=== PATIENT | female | born 1985 | race Caucasian/White ===

== ENCOUNTER 2019-12-29 10:53 | Inpatient (IN) | payer OTHER ==
[~2019-12-29] VITALS: Ht 162.5 cm; Wt 130.6 kg
[~2019-12-29 10:53] MED LIST: ACHYD1T PO; DCS100C PO; IBP800T PO; PREN-115 PO
[2019-12-29 11:10] VITALS: BP 137/86
[2019-12-29] MEDS ORDERED: LACTATED RINGERS 1,000 ML IV ONE (11:14)
[2019-12-29] MEDS ORDERED: ENOXAPARIN 60 MG/0.6 ML (LOVENOX) SYR SC SCH (11:27)
[2019-12-29] MEDS ORDERED: fentaNYL INJECTION 100 MCG/2 ML AMP IV PRN (11:30)
[2019-12-29] MEDS: LACTATED RINGERS 1,000 ML IV SCH ×2 (11:55→23:39)
[2019-12-29 12:00] VITALS: BP 137/86
[2019-12-29] MEDS ORDERED: VANCOMYCIN 2000 MG/NS 500 ML IVPB IV NR ×2 (12:00)
[2019-12-29 12:08] LABS: BASOPHILS % (AUTO) 0 % (0-10); EOSINOPHILS % (AUTO) 0 % (0-10); HEMATOCRIT 35 % (35-52); HEMOGLOBIN 11.4 g/dL (11.5-16.0); LYMPHOCYTES # (AUTO) 1.5 10^3/uL (1.0-4.0); LYMPHOCYTES % (AUTO) 12 % (12-44); MEAN CORPUSCULAR HEMOGLOBIN 29 pg (25-34); MEAN CORPUSCULAR HGB CONC 33 g/dL (32-36); MEAN CORPUSCULAR VOLUME 88 fL (80-99); MEAN PLATELET VOLUME 9.9 fL (9.0-12.2); MONOCYTES # (AUTO) 0.6 10^3/uL (0.0-1.0); MONOCYTES % (AUTO) 5 % (0-12); NEUTROPHILS # (AUTO) 10.7 10^3/uL (1.8-7.8); NEUTROPHILS % (AUTO) 82 % (42-75); PLATELET COUNT 267 10^3/uL (130-400)
[2019-12-29 12:27] LABS: ALANINE AMINOTRANSFERASE 22 U/L (0-55); ALBUMIN 3.9 GM/DL (3.2-4.5); ALKALINE PHOSPHATASE 63 U/L (40-136); BILIRUBIN,TOTAL 0.6 MG/DL (0.1-1.0); BUN/CREATININE RATIO 9; CARBON DIOXIDE 23 MMOL/L (21-32); CHLORIDE 102 MMOL/L (98-107); GFR ESTIMATED > 60; GLUCOSE 96 MG/DL (70-105); SODIUM 137 MMOL/L (135-145); TOTAL PROTEIN 7.1 GM/DL (6.4-8.2)
--- NOTE | 2019-12-29 12:30 | NUR ---
Romi Jain admitted to room 425-1, with an admitting diagnosis of cellulitis of right breast, on 12/29/19 from via , accompanied by .ROMI JAIN introduced to surroundings, call light, bed controls, phone, TV, temperature control, lights, meal times, smoking policy, visitor policy, side rail policy, bathrooms and showers. Patient Rights given to patient in the handbook.ROMI JAIN verbalizes understanding that [facility] is not responsible for the loss or damage to any personal effects or valuables that are kept in the patients posession during their hospitalization. ROMI JAIN verbalizes understanding of Interdisciplinary Patient Education. Patient and/or family were informed about the Rapid Response Team and its purpose.
[2019-12-29] MEDS ORDERED: KETOROLAC 60 MG/2 ML VIAL IV PRN ×2 (12:45→16:00)
[2019-12-29] MEDS: LACTOBACILLUS ACIDOPHILUS (PROBIOTIC) CAPSULE PO SCH ×2 (12:47→18:36)
[2019-12-29] MEDS ORDERED: ACET325T38 PO (14:11)
[2019-12-29] MEDS ORDERED: DOXY100T2 PO (14:11)
[2019-12-29] MEDS ORDERED: DAPS100T3 PO (14:11)
[2019-12-29] MEDS ORDERED: IBUP-2473 PO (14:11)
[2019-12-29] MEDS ORDERED: HYDR-3817 PO (14:11)
--- NOTE | 2019-12-29 15:13 | NUR ---
SPOKE WITH THE PT AND WENT THRU THE EXT MED HISTORY TO COMPLETE THE MED REC ACCORDING TO THE PT SHE DOES NOT TAKE ANY MAINTENANCE MEDICATIONS AND HAS ONLY BEEN ON MEDICATION FOR CELLULITIS OTC MEDS: IBUPROFEN TYLENOL
--- NOTE | 2019-12-29 15:33 | NUR ---
PATIENT C/O ITCHING AND FACIAL FLUSHING WITH VANCO ADMIN. VANCO STOPPED AT THIS TIME. DR HERR NOTIFIED .
[2019-12-29] MEDS ORDERED: diphenhydrAMINE 50 MG/ML INJ (BENADRYL) ONE (15:39)
[2019-12-29] MEDS ORDERED: diphenhydrAMINE 50 MG/ML INJ (BENADRYL) IVP ONE (15:45)
[2019-12-29] MEDS ORDERED: KETOROLAC 30 MG/ML VIAL ONE (15:54)
[2019-12-29 16:00] VITALS: BP 106/59
[2019-12-29] MEDS ORDERED: PIPERACILLIN/TAZO 4.5 GM/NS 100 ML IV NR ×2 (16:00)
--- NOTE | 2019-12-29 16:06 | NUR ---
PATIENT HIVES APPEARING RASH STILL APPARENT, PATIENT STATES ITCHING IS GETTING BETTER FOLLOWING BENADRYL ADMIN. CONT TO MONITOR.
--- NOTE | 2019-12-29 16:52 | NUR ---
PATIENT TALKING ON PHONE AT THIS TIME. REPORTS RELIEF FROM BENADRYL AND PAIN WELL CONTROLLED. DENIES NEEDS OR C/O AT THIS TIME.
[2019-12-29 19:25] VITALS: BP 104/55
[2019-12-29] MEDS ORDERED: VANCOMYCIN 1 GM/NS 250 ML IVPB IV SCH ×2 (20:00)
[2019-12-29] MEDS: PIPERACILLIN/TAZOBACTAM (BULK) 4.5 GM in NS (IVPB) 100 ML IV SCH (22:05)
[2019-12-29] MEDS: ENOXAPARIN 40 MG/0.4 ML (LOVENOX) SYR SC SCH (22:13)
[2019-12-29 22:55] VITALS: BP 103/58
[2019-12-30] MEDS: LACTATED RINGERS 1,000 ML IV SCH ×3 (01:50→23:37)
[2019-12-30 04:09] VITALS: BP 104/54
[2019-12-30] MEDS: PIPERACILLIN/TAZOBACTAM (BULK) 4.5 GM in NS (IVPB) 100 ML IV SCH ×3 (05:36→23:37)
[2019-12-30 07:30] VITALS: BP 114/73
[2019-12-30] MEDS: LACTOBACILLUS ACIDOPHILUS (PROBIOTIC) CAPSULE PO SCH ×3 (09:11→17:18)
--- NOTE | 2019-12-30 10:28 | Progress Note ---
Subjective Subjective Date Seen by Provider: Dec 30, 2019 Time Seen by Provider: 10:00 PT WAS ADMITTED FROM THE OFFICE YESTERDAY DUE TO FAILURE OF OUTPATIENT ORAL ANTIBIOTICS. SHE STATES THAT THIS MORNING SHE IS FEELING MUCH IMPROVED, SHE HAS LESS PAIN, HER HEADACHE HAS RESOLVED AND HER PAIN IS IMPROVED WELL. SHE DENIES FEVER OVERNIGHT. Review of Systems General: No Chills, No Fatigue, No Malaise HEENT: No Head Aches, No Visual Changes Pulmonary: No Dyspnea, No Cough Cardiovascular: No: Chest Pain, Palpitations Gastrointestinal: No: Nausea, Abdominal Pain Genitourinary: No Dysuria Musculoskeletal: No: neck pain, shoulder pain, back pain Neurological: No: Weakness, Confusion REDNESS AND PAIN ON HER RIGHT BREAST All Other Systems Reviewed All Other Systems Reviewed: Yes Objective Exam Vital Signs Vital Signs - First Documented 12/29/19 11:10 Temp 36.8 Pulse 95 Resp 18 B/P (MAP) 137/86 Pulse Ox 95 O2 Delivery Room Air Capillary Refill : Less Than 3 Seconds General Appearance: No Apparent Distress, WD/WN Eyes: Bilateral Eye Normal Inspection, Bilateral Eye PERRL, Bilateral Eye EOMI HEENT: Pharynx Normal Neck: Full Range of Motion, Non Tender, Supple Respiratory: Chest Non Tender, Lungs Clear, Normal Breath Sounds, No Accessory Muscle Use, No Respiratory Distress Cardiovascular: Regular Rate, Rhythm, No Edema Gastrointestinal: Normal Bowel Sounds, Non Tender, Soft Rectal: Deferred Extremity: Normal Capillary Refill, Non Tender, No Calf Tenderness, No Pedal Edema Neurologic/Psychiatric: Alert, Oriented x3, No Motor/Sensory Deficits, Normal Mood/Affect, life skills coach II-XII Norm as Tested Skin: Erythema (RIGHT LATERAL CHEST/BREAST - INDURATION OF ABOUT 3 X 2.5CM IN OVOID SHAPE HORIZONTALLY - AREA OF ERYTHEMA MUCH MILDER THAN ON ADMISSION) Results Lab Laboratory Tests 12/29/19 12:00: White Blood Count 13.0H, Red Blood Count 3.96, Hemoglobin 11.4L, Hematocrit 35, Mean Corpuscular Volume 88, Mean Corpuscular Hemoglobin 29, Mean Corpuscular Hemoglobin Concent 33, Red Cell Distribution Width 11.9, Platelet Count 267, Mean Platelet Volume 9.9, Immature Granulocyte % (Auto) 0, Neutrophils (%) (Auto) 82H, Lymphocytes (%) (Auto) 12, Monocytes (%) (Auto) 5, Eosinophils (%) (Auto) 0, Basophils (%) (Auto) 0, Neutrophils # (Auto) 10.7H, Lymphocytes # (Auto) 1.5, Monocytes # (Auto) 0.6, Eosinophils # (Auto) 0.0, Basophils # (Auto) 0.0, Immature Granulocyte # (Auto) 0.1, Sodium Level 137, Potassium Level 4.0, Chloride Level 102, Carbon Dioxide Level 23, Anion Gap 12, Blood Urea Nitrogen 7, Creatinine 0.80, Estimat Glomerular Filtration Rate > 60, BUN/Creatinine Ratio 9, Glucose Level 96, Lactic Acid Level 0.81, Calcium Level 9.0, Corrected Calcium 9.1, Total Bilirubin 0.6, Aspartate Amino Transf (AST/SGOT) 18, Alanine Aminotransferase (ALT/SGPT) 22, Alkaline Phosphatase 63, Total Protein 7.1, Albumin 3.9 Assessment/Plan Assessment/Plan Admission Dx CELLULITIS DUE TO SUSPECTED SPIDER BITE FEVER PAIN HEADACHE ALLERGIC REACTION TO VANCOMYCIN Admission Status: Inpatient Order (span 2 midnights) Reason for Inpatient Admission: CELLULITIS UNRESPONSIVE TO ORAL ANTIBIOTICS OUTPT Assessment and Plan CELLULITIS DUE TO SUSPECTED SPIDER BITE FEVER PAIN HEADACHE ALLERGIC REACTION TO VANCOMYCIN CELLULITIS DUE TO SUSPECTED SPIDER BITE WITH FEVER AND PAIN - FAILURE OF OUTPATIENT ORAL ANTIBIOTIC OF DOXYCYCLINE AND DAPSONE - NO SITE OF FLUCTUANT TISSUE ABLE TO BE INCISED FOR DRAINAGE - INITIALLY PLACED PT ON VANCOMYCIN - SHE HAD AN ALLERGIC REACTION TO THIS MEDICATION AND WAS CHANGED TO ZOSYN WITH GOOD RESPONSE TO THE IV ANTIBIOTICS - WILL KEEP PT IN HOSPITAL FOR ONE MORE DAY TO ASSURE IMPROVEMENT AND THEN IF STILL HAVING GOOD RESOLUTION, WILL DISCHARGE ON AUGMENTIN - RX TO BE SENT TO PHARMACY TODAY FOR HER TO SYSTEMS ARCHITECTURE ANALYST PRIOR TO PT'S DISCHARGE - SHE IS TO ALSO BE ON PROBIOTICS TID WHILE ON ORAL ANTIBIOTICS. HEADACHE - RESOLVED WITH TORADOL ALLERGIC REACTION TO VANCOMYCIN Clinical Quality Measures DVT/VTE Risk/Contraindication: Risk Factor Score Per Nursin RFS Level Per Nursing on Admit: 2=Moderate KIERAN HERR MD Dec 30, 2019 10:28
--- NOTE | 2019-12-30 10:34 | History & Physicial ---
History of Present Illness History of Present Illness Reason for visit/HPI PT IS A 34 Y/O FEMALE WHO IS KNOWN TO ME FROM CLINIC. SHE PRESENTED TO THE OFFICE THREE TIMES FOR WOUND CHECK OVER THE PAST WEEK - SHE WAS STARTED ON ORAL ANTIBIOTICS ON THURSDAY, RETURNED TO CLINIC ON THURSDAY WITH MINIMAL IMPROVEMENT IN THE ERYTHEMA AND NO AREA OF FLUCTUANT TISSUE PALPABLE FOR INCISION AND DRAINAGE. HER MEDICATION WAS ADJUSTED AND SHE RETURNED TO THE OFFICE ON THURSDAY FOR FOLLOW UP WITH NO IMPROVEMENT IN PAIN AND WITH PERSISTENT FEVER AND NEW ONSET OF NAUSEA. Date of Admission Dec 29, 2019 at 11:01 Date Seen by a Provider: Dec 29, 2019 Time Seen by a Provider: 09:45 Attending Physician Kieran Sesay MD Admitting Physician Kieran Sesay MD Consult Allergies and Home Medications Allergies Coded Allergies: vancomycin (Verified Allergy, Intermediate, Rash, 12/29/19) AND ITCHING Home Medications Acetaminophen 325 Mg Tablet, 325-650 MG PO Q8H PRN for PAIN-MILD (1-4), (Reported) Hydrocodone/Acetaminophen 1 Each Tablet, 1 EA PO Q4 -6H PRN for PAIN-MODERATE (5-7), (Reported) Ibuprofen 200 Mg Tablet, 400-600 MG PO Q8H PRN for PAIN-MILD (1-4), (Reported) Patient Home Medication List Home Medication List Reviewed: Yes Past Igkdvsw-Rghqbh-Fdoiqv Hx Patient Social History Marrital Status: Living Status: LIVES AT HOME WITH SPOUSE Employed/Student: employed Alcohol Use: Rarely Uses Recreational Drug Use: No Smoking Status: Never a Smoker 2nd Hand Smoke Exposure: No Physical Abuse Screen: No Sexual Abuse: No Recent Foreign Travel: No Contact w/other who traveled: No Recent Hopitalizations: No Recent Infectious Disease Expo: No Seasonal Allergies Seasonal Allergies: No Surgeries Yes Respiratory No Currently Using CPAP: No Currently Using BIPAP: No Cardiovascular No Neurological No Reproductive System : No Hx Reproductive Disorders: No Genitourinary No Gastrointestinal No Musculoskeletal No Endocrine History of Endocrine Disorders: No HEENT History of HEENT Disorders: No Cancer No Psychosocial History of Psychiatric Problem: No Integumentary History of Skin or Integumenta: No Blood Transfusions History of Blood Disorders: No Adverse Reaction to a Blood Tr: No Reviewed Nursing Assessment Reviewed/Agree w Nursing PMH: Yes Review of Systems Constitutional: chills, fever, malaise; No weakness EENTM: No hoarseness, No nose pain, No throat pain Respiratory: No cough, No dyspnea on exertion, No short of breath Cardiovascular: No chest pain, No palpitations Gastrointestinal: No abdominal pain, No diarrhea; nausea; No vomiting Genitourinary: no symptoms reported Musculoskeletal: no symptoms reported Skin: lesions (ERYTHEMA AND PAIN RIGHT LATERAL CHEST) Psychiatric/Neurological: Denies Anxiety, Denies Depressed, Denies Weakness All Other Systems Reviewed Negative Unless Noted: Yes Physical Exam Vital Signs Vital Signs - First Documented 12/29/19 11:10 Temp 36.8 Pulse 95 Resp 18 B/P (MAP) 137/86 Pulse Ox 95 O2 Delivery Room Air Capillary Refill : Less Than 3 Seconds Height, Weight, BMI Height: '" Weight: lbs. oz. kg; 49.45 BMI Method: General Appearance: WD/WN, Mild Distress (DUE TO PAIN, FEVER) Eyes: Bilateral Eye Normal Inspection, Bilateral Eye PERRL HEENT: PERRL/EOMI, Pharynx Normal Neck: Full Range of Motion, Normal Inspection, Non Tender, Supple Respiratory: Chest Non Tender, Lungs Clear, Normal Breath Sounds, No Accessory Muscle Use, No Respiratory Distress Cardiovascular: Regular Rate, Rhythm, Normal Peripheral Pulses Gastrointestinal: Normal Bowel Sounds, No Organomegaly, No Pulsatile Mass, Non Tender, Soft Rectal: Deferred Back: No CVA Tenderness Extremity: Normal Capillary Refill, Normal Range of Motion, Non Tender, No Calf Tenderness, No Pedal Edema Neurologic/Psychiatric: Alert, Oriented x3, No Motor/Sensory Deficits, Normal Mood/Affect, electronic game developer II-XII Norm as Tested Skin: Erythema (WITH LARGE AREA OF SKIN INVOLVEMENT TENDER TO PALPATION IN ABOUT 5 X 4 CM REGION ALONG RIGHT LATERAL BREAST, INDURATION) Assessment/Plan Assessment and Plan CELLULITIS DUE TO SUSPECTED SPIDER BITE FEVER PAIN HEADACHE CELLULITIS DUE TO SUSPECTED SPIDER BITE WITH FEVER AND PAIN - FAILURE OF OUTPATIENT ORAL ANTIBIOTIC OF DOXYCYCLINE AND DAPSONE - NO SITE OF FLUCTUANT TISSUE ABLE TO BE INCISED FOR DRAINAGE - ADMISSION ON IV VANCOMYCIN FOR TREATMENT OF CELLULITIS. HEADACHE - TORADOL ORDERED FOR HEADACHE FEVER TREATMENT WITH TORADOL WELL DVT PROPHYLAXIS WITH LOVENOX Admission Diagnosis CELLULITIS DUE TO SUSPECTED SPIDER BITE FEVER PAIN HEADACHE Admission Status: Inpatient Order (span 2 midnights) Reason for Inpatient Admission: INPT ADMISSION FOR IV ANTIBIOTICS DUE TO PATIENT FAILING OUTPT ORAL ANTIBIOTIC THERAPY X 4 DAYS Clinical Quality Measures Admission Status Admission Dx CELLULITIS DUE TO SUSPECTED SPIDER BITE FEVER PAIN HEADACHE ALLERGIC REACTION TO VANCOMYCIN DVT/VTE Risk/Contraindication: Risk Factor Score Per Nursin RFS Level Per Nursing on Admit: 2=Moderate KIERAN SESAY MD Dec 30, 2019 10:34
[2019-12-30] MEDS ORDERED: AMOX-358 PO (10:40)
[2019-12-30] MEDS ORDERED: L. A1CAP12 PO (10:40)
[2019-12-30] MEDS ORDERED: ACETAMINOPHEN 325 MG TABLET PO PRN (10:45)
[2019-12-30] MEDS ORDERED: TROUGH ORDER-PHARMACY XX ONE (11:00)
[2019-12-30 11:40] VITALS: BP 138/75
[2019-12-30] MEDS: ENOXAPARIN 40 MG/0.4 ML (LOVENOX) SYR SC SCH ×2 (12:10→23:38)
[2019-12-30] MEDS: KETOROLAC 15 MG/ML VIAL IV PRN ×2 (16:06→23:37)
[2019-12-30 16:32] VITALS: BP 131/73
--- NOTE | 2019-12-30 17:55 | NUR ---
Nsg report given to ZECHARIAH Kitchen to take over care of pt. at 1500.
[2019-12-30 19:37] VITALS: BP 120/76
[2019-12-30 23:39] VITALS: BP 110/65
[2019-12-31 04:00] VITALS: BP 131/59
[2019-12-31] MEDS: PIPERACILLIN/TAZOBACTAM (BULK) 4.5 GM in NS (IVPB) 100 ML IV SCH (06:46)
[2019-12-31 08:00] VITALS: BP 124/74
[2019-12-31] MEDS: LACTOBACILLUS ACIDOPHILUS (PROBIOTIC) CAPSULE PO SCH ×2 (08:35→13:30)
[2019-12-31] MEDS: ENOXAPARIN 40 MG/0.4 ML (LOVENOX) SYR SC SCH (11:12)
[2019-12-31 12:00] VITALS: BP 142/72
[2019-12-31] MEDS ORDERED: LIDOCAINE 1% INJ 20 ML 20 ML VIAL ONE (12:08)
--- NOTE | 2019-12-31 13:00 | Discharge Summary ---
Discharge Summary Hospital Course Was the Problem List Reviewed?: Yes Hospital Course Date of Admission: Dec 29, 2019 at 11:01 Admission Diagnosis : Family Physician/Provider: Ramya Sesay MD Date of Discharge: 12/31/19 Discharge Diagnosis: 1. Right lateral chest cellulitis with abscess--S/P I and D with packing 2. Allergic Reaction to Vancomycin--resolved Hospital Course: This is a 34 year old female who was being treated outpatient for a right lateral breast/chest wall cellulitis. She was having worsening redness as well as other symptoms of headache/nausea so it was decided to admit her for IV antibiotics. She was given Vancomycin but had an allergic reaction to this which responded to benadryl. She was then placed on IV zosyn which her erythema was responding well to and her other symptoms of headache and nausea resolved. However on the day of discharge she did have a tender and fluctuant area. Surgery was consulted and was able to do an I and D at bedside with packing. The patient's [id number] is a nurse who is able to do wound packing so surgery was okay with the patient being discharged to home on oral antibiotics and wound packing. She will followup with Dr. eSsay later this week and with surgery in 1 week. Labs and Pending Lab Test: Microbiology 12/29/19 Blood Culture - Preliminary, Resulted No growth Home Meds Active Probiotic 15 Billion Cell Cap (L. Acidophilus/L. Rhamnosus) 1 Each Capsule 1 Each PO TID Augmentin 875-125 Tablet (Amoxicillin/Potassium Clav) 1 Each Tablet 1 Each PO BID Reported Tylenol (Acetaminophen) 325 Mg Tablet 325-650 Mg PO Q8H PRN Ibuprofen 200 Mg Tablet 400-600 Mg PO Q8H PRN Hydrocodone-Acetamin 7.5-325 (Hydrocodone/Acetaminophen) 1 Each Tablet 1 Ea PO Q4 -6H PRN Assessment/Pt Instructions 1. Right lateral chest cellulitis with abscess--S/P I and D with packing 2. Allergic Reaction to Vancomycin--resolved Discharge Planning: <30 minutes discharge planning Discharge Instructions Discharge Diet: No Restrictions Activity as Tolerated: Yes Consultations Dr. Hinson Discharge Physical Examination Vital Signs Vital Signs Date Time Temp Pulse Resp B/P (MAP) Pulse Ox O2 Delivery O2 Flow Rate FiO2 12/31/19 08:00 35.6 72 18 124/74 (91) 95 Room Air General Appearance: Mild Distress (tearful) Extremity: Non Tender, No Calf Tenderness, No Pedal Edema Skin: Other (right lateral chest area with much less erythema but induration area) Neurologic/Psychiatric: Alert, Oriented x3 Allergies: Coded Allergies: vancomycin (Verified Allergy, Intermediate, Rash, 12/29/19) AND ITCHING Discharge Summary Date of Admission Dec 29, 2019 at 11:01 Date of Discharge Clinical Quality Measures DVT/VTE Risk/Contraindication: Risk Factor Score Per Nursin RFS Level Per Nursing on Admit: 2=Moderate NIRALI SON DO Dec 31, 2019 12:53
--- NOTE | 2019-12-31 13:15 | NUR ---
Incision and drainage preformed at the bedside with Dr. Hinson. Wound packed with iodoform. Patient tolerated procedure well and requests to go home at this time. Dr. Hinson agrees as long as she follows up accordingly.
--- NOTE | 2019-12-31 13:29 | Consultation - Surgery ---
History of Present Illness History of Present Illness Patient Consulted On(casi/time) 12/31/19 13:23 Date Seen by Provider: Dec 31, 2019 Time Seen by Provider: 13:24 History of Present Illness Consult requested by Dr Gloria for right chest abscess. Patient is a 34 year old female who over last week has been treated for cellulitis of right chest. Had not has any improvement until she was admitted to hospital. Pain and tender in the right chest area. Had a needle stuck in it with no drainage she states. Has had some slight fever. Today she states the area is looking better. Less tender. Really wanting to go home. Area she states has been hard, but today slightly softer. Was thought to initially be related to spider bite. Allergies and Home Medications Allergies Coded Allergies: vancomycin (Verified Allergy, Intermediate, Rash, 12/29/19) AND ITCHING Home Medications Acetaminophen 325 Mg Tablet, 325-650 MG PO Q8H PRN for PAIN-MILD (1-4), (Reported) Amoxicillin/Potassium Clav 1 Each Tablet, 1 EACH PO BID Prescribed by: KIERAN HERR on 12/30/19 1040 Hydrocodone/Acetaminophen 1 Each Tablet, 1 EA PO Q4 -6H PRN for PAIN-MODERATE (5-7), (Reported) Ibuprofen 200 Mg Tablet, 400-600 MG PO Q8H PRN for PAIN-MILD (1-4), (Reported) L. Acidophilus/L. Rhamnosus 1 Each Capsule, 1 EACH PO TID Prescribed by: KIERAN HERR on 12/30/19 1040 Patient Home Medication List Home Medication List Reviewed: Yes Past Svvdfyl-Ymgjgn-Kvtztx Hx Patient Social History Alcohol Use: Rarely Uses Number of Drinks Today: 0 Recreational Drug Use: No Smoking Status: Never a Smoker 2nd Hand Smoke Exposure: No Recent Foreign Travel: No Contact w/Someone Who Travel: No Recent Infectious Disease Expo: No Recent Hopitalizations: No Physical Abuse Screen: No Sexual Abuse: No Seasonal Allergies Seasonal Allergies: No Surgeries History of Surgeries: Yes Respiratory History of Respiratory Disorde: No Cardiovascular History of Cardiac Disorders: No Neurological History of Neurological Disord: No Reproductive System : No Hx Reproductive Disorders: No Genitourinary History of Genitourinary Disor: No Gastrointestinal History of Gastrointestinal Di: No Musculoskeletal History of Musculoskeletal Dis: No Endocrine History of Endocrine Disorders: No HEENT History of HEENT Disorders: No Cancer History of Cancer: No Psychosocial History of Psychiatric Problem: No Integumentary History of Skin or Integumenta: No Blood Transfusions History of Blood Disorders: No Adverse Reaction to a Blood Tr: No Reviewed Nursing Assessment Reviewed/Agree w Nursing PMH: Yes Family Medical History Significant Family History: No Pertinent Family Hx Review of Systems-General Constitutional: No chills, No diaphoresis EENTM: No blurred vision, No double vision Respiratory: No cough, No dyspnea on exertion, No short of breath Cardiovascular: No chest pain, No edema Gastrointestinal: No abdominal pain, No nausea, No vomiting Musculoskeletal: No back pain, No joint pain Skin: change in color, other (tender right chest) Psychiatric/Neurological: Denies Anxiety, Denies Depressed, Denies Emotional Problems All Other Systems Reviewed Negative Unless Noted: Yes (Negative excepted noted.) Physical Exam-General Problems Physical Exam Vital Signs Vital Signs - First Documented 12/29/19 11:10 Temp 36.8 Pulse 95 Resp 18 B/P (MAP) 137/86 Pulse Ox 95 O2 Delivery Room Air Capillary Refill : Less Than 3 Seconds General Appearance: WD/WN, no apparent distress, obese HEENT: PERRL/EOMI, normal ENT inspection Neck: non-tender, supple, normal inspection Respiratory: chest non-tender, no respiratory distress, no accessory muscle use Cardiovascular: regular rate, rhythm, no edema Gastrointestinal: non tender, soft, no organomegaly Rectal: deferred Back: normal inspection, no CVA tenderness Extremities: non-tender, normal inspection Neurologic/Psychiatric: alert, normal mood/affect, oriented x 3 Skin: No normal color (erythema and indurated right chest area, small area of fluctuance, warm to touch) Lymphatic: no adenopathy Data Review Labs Microbiology 12/29/19 Blood Culture - Preliminary, Resulted No growth Assessment/Plan Assessment/Plan Assessment/Plan Cellulitis with abscess right chest Fever Patient with abscess of right chest we discussed risks and benefits of incision and drainage of abscess which she understands and wishes to proceed. will need daily packing she is wanting to go home and has help with packing daily from family member, or can arrange to be done at my office as well. will have her follow up in 1 week or if any issues be seen at that time. I and D performed making a 3 cm incision and abscess was in the subcutaneous layer. Clinical Quality Measures DVT/VTE Risk/Contraindication: Risk Factor Score Per Nursin RFS Level Per Nursing on Admit: 2=Moderate POLO TAYLOR DO Dec 31, 2019 13:29
[2019-12-31] MEDS: KETOROLAC 15 MG/ML VIAL IV PRN (13:30)
[2019-12-31] MEDS ORDERED: LIDOCAINE 1% INJ 20 ML 20 ML VIAL INJ ONE (13:30)
[2019-12-31 13:50] VITALS: BP 124/74
--- NOTE | 2019-12-31 13:50 | NUR ---
ROMI JAIN demonstrates understanding of discharge instructions and accurately returns instructions upon questioning. Copy of Post-Discharge Instructions and Medication Discharge Instructions given to patient. ROMI JAIN is able to manage continuing needs after discharge. Patients belongings returned to patient. Skin dry and intact; no breakdown noted. Patient discharged from [facility]- on 12/31/2019 at 1350. ROMI JAIN left floor via wheelchair, accompanied by staff.
--- NOTE | 2019-12-31 22:57 | OPERATIVE REPORT ---
DATE OF SERVICE: 12/31/2019 PREOPERATIVE DIAGNOSIS: Right chest abscess. POSTOPERATIVE DIAGNOSIS: Right chest abscess. PROCEDURE: Incision and drainage of right chest abscess. SURGEON: Polo Hinson DO ANESTHESIA: 1% lidocaine 3 mL. COMPLICATIONS: None. ESTIMATED BLOOD LOSS: Minimal. INDICATIONS: The patient is a 34-year-old female with a right chest wall cellulitis, which has developed an abscess. She understands risks and benefits of procedure and wishes to proceed with procedure. Consent was signed on the chart. DESCRIPTION OF PROCEDURE: The patient was prepped and draped in sterile fashion. Timeout was performed. Local anesthetic was infiltrated and a 11 blade scalpel was used to make a skin incision down through the skin and subcutaneous tissue into the abscess cavity. Purulent material erupted, culture was obtained. The wound was probed breaking up loculations. The wound was then irrigated with copious amounts of irrigation with the saline. The wound was then packed with iodoform gauze. The area was washed and dried and sterile bandage was applied. The patient tolerated the procedure well without any complications. The abscess was in the subcutaneous tissue layer. Job ID: [id number] DocumentID: [id number] Dictated Date: 12/31/2019 13:35:33 Car Oiler Date: 12/31/2019 22:57:17 Dictated By: POLO HINSON DO
== END 2019-12-31 13:50 | disposition home or self-care (01) | DRG 908 ==
LOC: 4TH 11:01
PROVIDERS: ADMIT Family Medicine; ATTEND Family Medicine
PROC: 0J960ZZ Drainage of Chest Subcutaneous Tissue and Fascia, Open Approach (ICD-10-PCS; principal; 2019-12-31)
DX: T63.301A Toxic effect of unspecified spider venom, accidental (unintentional), initial encounter (principal); L03.313 Cellulitis of chest wall; T36.8X5A Adverse effect of other systemic antibiotics, initial encounter; R50.9 Fever, unspecified; R51.9 Headache, unspecified
CPT/HCPCS: 36415; 80053; 83605; 85025; 87040; 87070; 87075; 87077; 87186; 87205

== ENCOUNTER → 2020-12-17 | Outpatient (CLI) | payer OTHER ==
[~2020-12-17] MED LIST changes: +ACET325T38 PO; +ACETAMINOPHEN 500 MG TAB (TYLENOL) PO PRN; +AMOX-358 PO; +CASIRIVIMAB/IMDEVIMAB 1,200 MG in NS (IVPB) 250 ML IV ONE; +DAPS100T3 PO; +DOXY100T2 PO; +EPINEPHrine INJECTION 1 MG/ML AMP IM PRN; +HYDR-3817 PO; +IBUP-2473 PO; +L. A1CAP12 PO; +ONDANSETRON 4 MG/2 ML (SDV) Z0FRAN IV PRN; +diphenhydrAMINE 50 MG/ML INJ (BENADRYL) IV PRN
[2020-12-17 12:41] VITALS: BP 112/49
[2020-12-17 14:27] VITALS: BP 123/79
== END ==
LOC: INFUSION 12:18
PROVIDERS: ATTEND Nurse Practitioner Family
DX: U07.1 COVID-19 (principal)

== ENCOUNTER → 2022-05-01 | Outpatient (CLI) | payer OTHER ==
[~2022-05-01] MED LIST changes: -ACETAMINOPHEN 500 MG TAB (TYLENOL) PO PRN; -CASIRIVIMAB/IMDEVIMAB 1,200 MG in NS (IVPB) 250 ML IV ONE; -EPINEPHrine INJECTION 1 MG/ML AMP IM PRN; +HOLD METFORMIN - RECEIVED CONTRAST 20 ML VIAL IV SCH; +IOHEXOL 350 MG/ML 100 ML (OMNIPAQUE 350) VIAL IV ONE; +NS 100 ML (IVPB) BAG IV ONE; -ONDANSETRON 4 MG/2 ML (SDV) Z0FRAN IV PRN; -diphenhydrAMINE 50 MG/ML INJ (BENADRYL) IV PRN
--- NOTE | 2022-05-01 08:58 | Diagnostic Imaging Report ---
PROCEDURE: CT abdomen and pelvis with contrast. TECHNIQUE: Multiple contiguous axial images were obtained through the abdomen and pelvis after administration of intravenous contrast. Auto Exposure Controls were utilized during the CT exam to meet ALARA standards for radiation dose reduction. All CT scans use one or more of the following dose optimizing techniques: automated exposure control, MA and/or KvP adjustment based on patient size and exam type or iterative reconstruction. INDICATION: Left-sided abdominal pain. No prior studies are available for comparison. Lung bases are clear. The liver and gallbladder are unremarkable. There is no biliary ductal dilatation. Pancreas and spleen are unremarkable. No adrenal mass is detected. Kidneys are unremarkable. Aorta is nonaneurysmal. The small and large bowel loops are of normal caliber. There is no obstruction. No inflammatory changes are seen. There is no ascites. There is a cyst in the left adnexa measuring 4.4 cm, consistent with an ovarian cyst. The uterus is unremarkable. Bladder is decompressed. Bony structures are nonacute. IMPRESSION: 4.4 cm left ovarian cyst. This could be further characterized with pelvic sonography if clinically indicated. No other significant abnormalities detected. Dictated by: Dictated on workstation # [id number]
== END ==
LOC: RAD 08:10
PROVIDERS: ATTEND Nurse Practitioner Family
DX: N83.202 Unspecified ovarian cyst, left side (principal)
CPT/HCPCS: 74177